=== PATIENT | female | born 1945 | race Caucasian/White ===

== ENCOUNTER → 2018-06-04 | Outpatient (CLI) | payer MEDICARE, OTHER ==
--- NOTE | 2018-06-04 18:23 | RAD ---
EXAM DESCRIPTION: Toes,Right CLINICAL HISTORY: 72 years Female, EXOSTOSIS DORSAL RT GREAT TOE COMPARISON: None. FINDINGS: The distal phalanx of the great toe is notable for small medial osteophyte or exostosis 2 mm in size incompletely corticated. Degenerative changes at the first metatarsal phalangeal joint are noted with mild spurring. Mild narrowing of the joints of toes. The bones appear osteopenic with prominent reticular pattern. On the oblique view, slight cortical defect is seen dorsally at this may be artifact related to the nail bed passing over this area. No other evidence of fractures of the toes. Clinical correlation recommended. IMPRESSION: No definite fracture. See above. Electronically signed by: Andrey Lilly MD 06/04/2018 6:21 PM [facility]
== END ==
LOC: RAD 17:03
PROVIDERS: ATTEND Podiatrist Foot & Ankle Surgery
DX: M25.774 Osteophyte, right foot (principal)